=== PATIENT | female | born 1950 | race Caucasian/White ===

== ENCOUNTER → 2022-06-01 | Outpatient (CLI) | payer OTHER, SELFPAY ==
--- NOTE | 2022-06-01 | EMB_PTH ---
PATIENT: VU ROSE LOC: [facility] U#:[id number] AGE/SX: 71/F ROOM: RE06/01/[address]: Dr. Alan Fields MD : 1950 BED: DIS: 06/01/2022 SPEC #: [id number] RECD: 06/01/22 15:06 STATUS: NATALIE MELANIA #: [id number] CHLOE: 06/01/22 00:[address]: Alan Fields DEPT: SURGICAL PATHOLOGY RECD BY: Rosa Sierra Tissues: Endometrium, NOS Procedures: Surgery Specimen Level IV HEADER OPERATION: Endometrial biopsy PRE-OP DIAGNOSIS: Postmenopausal bleeding TISSUE SUBMITTED: Endometrial biopsy MICROSCOPIC DIAGNOSIS Endometrium, biopsy: Fragments of benign lower endometrium/cervical polyp, mildly inflamed. AM:pranay 06/03/2022 MICROSCOPIC DESCRIPTION Slides are reviewed. GROSS DESCRIPTION Received in fixative is one container labeled with the patient's name and designated endometrial biopsy. The specimen consists of multiple irregular fragments of light mitchell soft tissue that in aggregate measure 1 x 0.5 x 0.1 cm. The specimen is totally submitted in one cassette. / AM:pranay 06/02/2022 TC:5 CPT: 21876
== END | disposition home or self-care (01) ==
PROVIDERS: Visit Provider Obstetrics & Gynecology
DX: N95.0 Postmenopausal bleeding (principal)
CPT/HCPCS: 88305

== ENCOUNTER 2025-05-28 10:00 | Outpatient (RCR) | payer MEDICARE, SELFPAY ==
--- NOTE | 2025-04-23 12:04 | HP.PTEVAL ---
Patient's Visit Information Visit Information Visit Information: VU ROSE is a 74 year old F referred to Physical Therapy by AUDREY HernandezC with a diagnosis of UNILTERAL OA LEFT KNEE. Date of Evaluation: 04/23/25 Physical Therapist: Alan Ramon, PT, Cert MDT, OCS Visit Plan Frequency: 2x /Week Duration: 4 Weeks Plan: PT INTERVENTIONS ROM/FLEXABILITY KNEE ,QUADS/HAMS/HIP ,FUNCTIONAL STRENGTHENING AND NUSTEP/BIKE Subjective Subjective: This 74 y/o female presents to physical therapy with right knee pain.Patient has had left knee pain for ~ since last Jul 23. Patient was hiking on hard surfaces. See [employer] founded to have DJD ,thus had patient left knee with Euflexxa 20 mg, # 3 series. No pain medication tried cortisone x2by DR Pederson and did x-rays. Patient pain located medial aspect. Aggravating squatting/kneeling ,walking on uneven terrain and steps. Alleviating factors rest. Denies paresthesia/tingling-. Sleeping good. Patient condition affects QOL and function adn hobbies. SOCIAL: VOCATION: [employer]: Hiking,karaking,bike Pain Left Knee: Pain Intensity (Out of 10): 2 Pain Intensity Range: 7 Objective Objective: POSTURE: mild forward posture GAIT: ambulates with reciprocal pattern with antalgic gait left leg PALPATION: medial knee joint line FLEXABILITY: hamstrings mild tight AROM: supine knee flexion 0-110 degrees STAIRS: one steps at time MMT: quads/hams/hip 4/5 ,ankle 5/5 Special Tests L Knee Melo - Meniscus: Positive L Knee Valgus - MCL: Negative L Knee Varus - LCL: Negative Balance/Special Test Scores Lower Extremity Functional Score: 39 Goals Goal 1:: Patient to be I with HEP for knee Goal Time Frame: 4-6 Weeks Goal 2:: Patient to improve AROM knee flexion 125 degrees to improve stairs Goal Time Frame: 4-6 Weeks Goal 3:: Patient to normalize gait w/o antalgic gait especially uneven terrain Goal Time Frame: 4-6 Weeks Goal 4:: Patient to improve LFES score by 5 points to improve QOL and function/gait Goal Time Frame: 4-6 Weeks Rehabilitation Potential Physical Therapy Diagnosis: This patient has left knee pain with decrease ROM , weakness impairs walking/standing thus benefit from skilled PT Rehabilitation Potential: Good Anticipated Interventions Patient/Client Instruction: Educate patient on: Condition and Plan of Care For the Purpose of:: To decrease pain, To increase ROM, To improve muscle performance and motor function, To improve ability to perform ADL's, To increase tolerance to activity/condition/position, To improve ability of physical actions for home/community/work/leisure, To improve health of tissue, To decrease soft tissue restriction, To increase flexibility/ROM and To improve tolerance to ADL's Therapeutic Exercise to Include: Strength training, Endurance training, Balance training, Flexibilty training and Active ROM Comment: QUADS/HAMS/HIP For the Purpose of:: To decrease pain, To increase ROM, To improve muscle performance and motor function, To improve ability to perform ADL's, To increase tolerance to activity/condition/position, To improve ability of physical actions for home/community/work/leisure, To improve gait and locomotor functions, To improve health of tissue, To decrease soft tissue restriction, To increase flexibility/ROM and To improve tolerance to ADL's Text: Thank you for the opportunity to evaluate your patient. For Medicare and Medicare HMO plans, please review the plan of care and approve it. It will need to be FAXED BACK to us at [phone] for Medicare purposes. For Medicare only, by signing this I certify the plan of care. Please let me know if there are questions or concerns regarding this plan of care. Physician Signature: Date:
--- NOTE | 2025-05-28 10:24 | HP.PTDCSUM ---
Discharge Summary D/C summary: It has been my pleasure to treat VU ROSE referred by Desiree Montana NP-C, with the diagnosis of UNILTERAL OA LEFT KNEE for a total of 9 visit(s). Discharge Date: 05/28/25 Please see the following information for a summary of their discharge status. Subjective Subjective: -RTD today PT helped -euflexxa injections helped -Patient feels walk better ,with bending knee -Only major problems with hiking and stairs,patient enjoys hiking Pain Left Knee: Pain Intensity (Out of 10): 2 Overall Improvement % Improvement: 30 Objective Objective/Function: PT has helped with ROM and pain along with gel injection POSTURE: mild forward posture GAIT: ambulates with reciprocal pattern PALPATION: medial knee joint line FLEXABILITY: hamstrings mild tight AROM: supine knee flexion 0-20 degrees STAIRS: one steps at time with rail MMT: quads/hams/hip 4/5 ,ankle 5/5 Goals Goal 1:: Patient to be I with HEP for knee Goal Progress: Goal Met Goal 2:: Patient to improve AROM knee flexion 125 degrees to improve stairs Goal Progress: Progressing Goal 3:: Patient to normalize gait w/o antalgic gait especially uneven terrain Goal Progress: Progressing Goal 4:: Patient to improve LFES score by 5 points to improve QOL and function/gait Goal Progress: Goal Met Plan Plan: RTD DR Mustafa D/C Information d/c sentence: If there are questions or concerns regarding this patient's physical therapy, please feel free to call me at [phone]. Thank you for the referral of this patient. Sincerely, Alan Ramon, PT, Cert MDT, OCS Balance/Gait/Functional tests Balance/Special Test Scores Lower Extremity Functional Score: 50 Improvement % Improvement: 30
== END 2025-05-28 19:00 | disposition home or self-care (01) ==
LOC: PT 10:00
PROVIDERS: PCP Family Medicine; Referring Provider Nurse Practitioner Family; Visit Provider Nurse Practitioner Family
DX: M17.12 Unilateral primary osteoarthritis, left knee (principal)
CPT/HCPCS: 97110; 97162; 97530